=== PATIENT | female | born 1970 | race American Indian/Alaskan Native ===

== ENCOUNTER 2016-12-17 14:29 | Observation (INO) | payer OTHER ==
[~2016-12-17] VITALS: Ht 162.6 cm; Wt 52.3 kg
[~2016-12-17 14:29] MED LIST: APIX5TAB PO; DOCU-30 PO; ENOX60SY4 SQ; FERR325T20 PO; HYDR-3138 PO; ZINC PO
[2016-12-17] MEDS ORDERED: SODIUM CHLORIDE 0.9% 1,000 ML IV ONE (14:53)
[2016-12-17 15:18] LABS: HEMOGLOBIN 9.3 g/dL (11.7-16.4)
[2016-12-17 15:30] LABS: ASPARTATE AMINO TRANSFERASE 28 U/L (15-37); BLOOD UREA NITROGEN 5 mg/dL (7-18)
[2016-12-17 15:47] LABS: DIFF TOTAL CELLS COUNTED 100 CELL DIFF
[2016-12-17] MEDS ORDERED: POTA20TA6 PO (15:50)
[2016-12-17 15:51] LABS: VERIFY COUNTS? YES
[2016-12-17 15:52] LABS: ANISOCYTOSIS 2+; HYPOCHROMIA 2+; MICROCYTOSIS 2+; OVALOCYTES 1+; POIKILOCYTOSIS 1+; POLYCHROMASIA 1+; SPHEROCYTES 1+
[2016-12-17 15:53] LABS: GIANT PLATELETS 1+; SCHISTOCYTES 1+
[2016-12-17] MEDS ORDERED: NS + 40MEQ KCL 1,000 ML IV ONE (16:20)
[2016-12-17] MEDS ORDERED: POTASSIUM CHLORIDE 20 MEQ TAB.ER.PRT ONE (16:21)
[2016-12-17] MEDS: NS + 40MEQ KCL 1,000 ML IV SCH ×2 (16:25→22:09)
[2016-12-17] MEDS ORDERED: POTASSIUM CHLORIDE 20 MEQ TAB.ER.PRT PO ONE ×2 (16:30→20:30)
[2016-12-17] MEDS ORDERED: ONDANSETRON 2MG/ML, 2ML IVP PRN (17:30)
[2016-12-17] MEDS ORDERED: GUAIFENESIN/DM 200-20MG, 10ML UDC PO PRN (17:30)
[2016-12-17] MEDS ORDERED: DOCUSATE 100 MG CAPSULE PO PRN (17:30)
[2016-12-17] MEDS ORDERED: HYDROcodone/APAP 5/325 TABLET PO PRN (17:30)
[2016-12-17] MEDS ORDERED: LABETALOL 5MG/ML, 20ML IV PRN (17:30)
[2016-12-17] MEDS: APIXABAN 5 MG TABLET PO SCH (21:00)
[2016-12-17 21:15] LABS: OCCBLD OBC PASS
[2016-12-17 21:54] VITALS: BP 106/70
[2016-12-18] MEDS: NS + 40MEQ KCL 1,000 ML IV SCH ×3 (00:30→09:48)
[2016-12-18 01:49] VITALS: BP 100/62
[2016-12-18 08:14] VITALS: BP 107/70
[2016-12-18 08:35] LABS: HEMOGLOBIN 9.5 g/dL (11.7-16.4)
[2016-12-18] MEDS: APIXABAN 5 MG TABLET PO SCH (08:51)
[2016-12-18] MEDS: POTASSIUM CHLORIDE 20 MEQ TAB.ER.PRT PO SCH ×2 (08:55→12:24)
[2016-12-18 08:56] LABS: TOTAL IRON BINDING CAPACITY 240 mcg/dL (250-450)
[2016-12-18 09:00] LABS: BLOOD UREA NITROGEN 2 mg/dL (7-18)
[2016-12-18 09:20] LABS: DIFF TOTAL CELLS COUNTED 100 CELL DIFF
[2016-12-18] MEDS ORDERED: MAGNESIUM SULFATE PMX 2GM/50ML 50 ML IV ONE (09:30)
[2016-12-18 09:31] LABS: ANISOCYTOSIS 2+; HYPOCHROMIA 1+; MICROCYTOSIS 1+; VERIFY COUNTS? YES
[2016-12-18 09:32] LABS: OVALOCYTES 1+; POLYCHROMASIA 1+
[2016-12-18 13:43] VITALS: BP 104/75
[2016-12-18 19:33] VITALS: BP 108/73
[2016-12-18] MEDS: ACETAMINOPHEN 325 MG TABLET PO PRN (20:17)
[2016-12-19 01:30] VITALS: BP 106/69
[2016-12-19 05:36] LABS: HEMOGLOBIN 9.1 g/dL (11.7-16.4)
[2016-12-19 05:37] LABS: BLOOD UREA NITROGEN 1 mg/dL (7-18)
[2016-12-19 06:05] LABS: DIFF TOTAL CELLS COUNTED 100 CELL DIFF
[2016-12-19 06:08] LABS: ANISOCYTOSIS 2+; POLYCHROMASIA 1+; VERIFY COUNTS? YES
[2016-12-19 07:28] VITALS: BP 110/73
[2016-12-19] MEDS ORDERED: IRON DEXTRAN IV PER PHARMACY IV PRN (11:00)
[2016-12-19] MEDS ORDERED: EPINEPHRINE 1 MG/ML, 1ML IV PRN (11:30)
[2016-12-19] MEDS ORDERED: IRON DEXTRAN COMPLEX 25 MG in SODIUM CHLORIDE 0.9% 50 ML IV ONE (11:30)
[2016-12-19] MEDS ORDERED: IRON DEXTRAN COMPLEX IV ONE (12:00)
[2016-12-19] MEDS ORDERED: SODIUM CHLORIDE 0.9% IV ONE (12:00)
[2016-12-19] MEDS ORDERED: POTA20TA6 PO (12:58)
[2016-12-19 13:36] VITALS: BP 105/70
[2016-12-19] MEDS: ACETAMINOPHEN 325 MG TABLET PO PRN (16:44)
== END 2016-12-19 20:15 | disposition home or self-care (01) ==
LOC: ED 15:08 → INTOOBSV 16:14 → EDIP 16:14 → 4WST 18:16 → 3NW 12-19 13:33
PROVIDERS: ADMIT Internal Medicine; ATTEND Internal Medicine
DX: E87.6 Hypokalemia (principal); C19 Malignant neoplasm of rectosigmoid junction; C78.7 Secondary malignant neoplasm of liver and intrahepatic bile duct; D50.9 Iron deficiency anemia, unspecified; D70.9 Neutropenia, unspecified; T45.1X5A Adverse effect of antineoplastic and immunosuppressive drugs, initial encounter; R18.0 Malignant ascites; R19.7 Diarrhea, unspecified; E83.42 Hypomagnesemia; R19.5 Other fecal abnormalities; D72.819 Decreased white blood cell count, unspecified; I81 Portal vein thrombosis; Z86.718 Personal history of other venous thrombosis and embolism; Z85.048 Personal history of other malignant neoplasm of rectum, rectosigmoid junction, and anus; Z98.890 Other specified postprocedural states; Z83.3 Family history of diabetes mellitus; Z83.71 Family history of colonic polyps; X58.XXXA Exposure to other specified factors, initial encounter; Y92.89 Other specified places as the place of occurrence of the external cause; Y93.89 Activity, other specified; Y99.8 Other external cause status
CPT/HCPCS: 36415; 80048; 80053; 82272; 82728; 83540; 83550; 83735; 84132; 85025; 85045; 85610; 87324; 93005; 96361; 96365; 96366; 96367; 96368; 99285; G0378; J1750; J3475; J3480; J7030; J7050